=== PATIENT | female | born 1950 | race Caucasian/White ===

== ENCOUNTER 2019-05-22 14:44 | Observation (INO) | payer MEDICARE ==
[2019-05-22] MEDS ORDERED: Nitroglycerin TAB 0.3 MG* 0.3 MG TAB SL PRN (15:25)
[2019-05-22 15:32] LABS: ABS Eosinophils 0.1 10^3/ul (0-0.6); ABS Lymphocytes 3.1 10^3/ul (1.0-4.8); ABS Monocytes 0.9 10^3/ul (0-0.8); ABS Neutrophils 6.2 10^3/ul (1.5-7.7); Eosinophil % 1.1 %; Hematocrit 45 % (35-47); Hemoglobin 15.1 g/dL (12.0-16.0); Lymphocyte % 29.9 %; Mean Corpuscular HGB Conc 34 g/dL (31-36); Mean Corpuscular Hemoglobin 32 pg (27-31); Mean Corpuscular Volume 95 fL (80-97); Mean Platelet Volume 9.2 fL (7.4-10.4); Nucleated Red Blood Cells % 0.2; Platelet Count 204 10^3/uL (150-450); Red Blood Count 4.69 10^6 /uL (3.70-4.87); Red Cell Distribution Width 13 % (10-15); White Blood Count 10.2 10^3/uL (3.5-10.8)
[2019-05-22 15:39] LABS: INR 0.98 (0.82-1.09)
[2019-05-22 16:09] LABS: Albumin 4.5 g/dL (3.2-5.2); Albumin/Globulin Ratio 1.3 (1-3); BUN/Creatinine Ratio 20.5 (8-20); Calcium 9.9 mg/dL (8.6-10.3); EGFR African American 77.6 (>60); EGFR Non-African American 64.1 (>60); Globulin 3.4 g/dL (2-4); Total Bilirubin 0.5 mg/dL (0.2-1.0); Total Protein 7.9 g/dL (6.4-8.9)
--- NOTE | 2019-05-22 16:12 | ED ---
HPI Chest Pain - HPI Summary HPI Summary: The patient is a 69 y/o F presenting to [facility] with a chief complaint of intermittent episodes of chest pain over the last few weeks with a worsening episode occurring today. She reports constant pain over the last few days with an episode of sharper pain starting last night and extending into today. However , today the pain, described as a mid-sternal pressure, began to radiate into the left lateral chest, which she hasn't experienced before. She was at rest during onset today, and she had SOB as well. Currently, the pain is rated 4/10 in severity, She denies any fevers, chills, cough, nausea, vomiting, or diaphoresis during the episodes. She also notes that she hasn't recently fallen or traveled long distances, and she has never had a blood clot. Last stress test in 2001 with normal results. PMHx: angina, HTN, HLD, DM, hypothyroidism. FHx: IA in father age 63. Nonsmoker, occasional EtOH, no substance use. Medications reviewed. Allergies noted. - History of Current Complaint Chief Complaint: EDChestPainROMI Time Seen by Provider: 05/22/19 15:09 Hx Obtained From: Patient Onset/Duration: Started Hours Ago - last night worse than usual with worsening occurring today, Still Present Timing: Constant Initial Severity: Mild Current Severity: Moderate Pain Intensity: 4 Pain Scale Used: 0-10 Numeric Chest Pain Location: Mid Sternal Chest Pain Radiates: Yes Chest Pain Radiates To:: Other - left lateral chest Character: Dull/Aching, Pressure/Squeezing, Sharp/Stabbing Aggravating Factor(s): Rest Alleviating Factor(s): Nothing Associated Signs and Symptoms: Positive: Chest Pain, Shortness of Breath, Other : - Negative: recent fall.. Negative: Fever, Chills, Diaphoresis, Nausea, Cough , Vomiting - Allergy/Home Medications Allergies/Adverse Reactions: Allergies Allergy/AdvReac Type Severity Reaction Status Date / Time No Known Allergies Allergy Verified 05/22/19 14:52 Home Medications: Home Medications Atorvastatin* [Lipitor 10 MG*] 10 mg PO DAILY 05/22/19 [History Confirmed ] Levothyroxine TAB* [Synthroid 100 MCG TAB*] 100 mcg PO DAILY 05/22/19 [History Confirmed 05/22/19] Sitagliptin Phos/Metformin HCl [Janumet 50-1,000 mg Tablet] 1 each PO DAILY 01/04 [History Confirmed 05/22/19] amLODIPine TAB* [Norvasc 5 mg TAB*] 5 mg PO DAILY 05/22/19 [History Confirmed ] PMH/Surg Hx/FS Hx/Imm Hx Endocrine/Hematology History: Reports: Hx Diabetes, Hx Thyroid Disease Cardiovascular History: Reports: Hx Angina, Hx Hypercholesterolemia, Hx Hypertension - Surgical History Surgical History: None Surgery Procedure, Year, and Place: none Infectious Disease History: No Infectious Disease History: Denies: Traveled Outside the [place] in Last 30 Days - Family History Known Family History: Positive: Cardiac Disease - IA father age 63 - Social History Occupation: Employed Full-time Alcohol Use: Occasionally Alcohol Amount: "once in a while" Hx Substance Use: No Substance Use Type: Reports: None Hx Tobacco Use: No Smoking Status (MU): Never Smoked Tobacco Review of Systems Negative: Fever, Chills, Skin Diaphoresis Positive: Chest Pain - mid-sternal pressure radiating to the left lateral wall Positive: Shortness Of Breath - with chest pressure. Negative: Cough Negative: Vomiting, Nausea Positive: Other - left shoulder pain radiating from chest Neurological: Other - Negative: fall All Other Systems Reviewed And Are Negative: Yes Physical Exam - Summary Physical Exam Summary: Constitutional: Well-developed, Well-nourished, Alert. (-) Distressed Skin: Warm, Dry HENT: Normocephalic; Atraumatic Eyes: Conjunctiva normal Neck: Musculoskeletal ROM normal neck. (-) JVD, (-) Stridor, (-) Tracheal deviation Cardio: Rhythm regular, rate normal, Heart sounds normal; Intact distal pulses; The pedal pulses are 2+ and symmetric. Radial pulses are 2+ and symmetric. (-) Murmur Pulmonary/Chest wall: Effort normal. (-) Respiratory distress, (-) Wheezes, (-) Rales Abd: Soft, (-) tenderness, (-) Distension, (-) Guarding, (-) Rebound Musculoskeletal: Good pulses bilaterally in radius, No calf tenderness, No venous cords, No pain with dorsiflexion of foot, (-) Edema Lymph: (-) Cervical adenopathy Neuro: Alert, Oriented x3 Psych: Mood and affect Normal Triage Information Reviewed: Yes Vital Signs On Initial Exam: Initial Vitals Temp Pulse Resp BP Pulse Ox 98.7 F 81 18 184/89 98 05/22/19 14:50 05/22/19 14:50 05/22/19 14:50 05/22/19 14:50 05/22/19 14:50 Vital Signs Reviewed: Yes Diagnostics - Vital Signs Vital Signs Temp Pulse Resp BP Pulse Ox 05/22/19 15:12 82 19 178/95 98 05/22/19 15:07 75 13 99 05/22/19 14:50 98.7 F 81 18 184/89 98 - Laboratory Lab Results: Lab Results 05/22/19 05/22/19 05/22/19 Range/Units 15:12 15:12 15:12 WBC 10.2 (3.5-10.8) 10^3/uL RBC 4.69 (3.70-4.87) 10^6 /uL Hgb 15.1 (12.0-16.0) g/dL Hct 45 (35-47) % MCV 95 (80-97) fL MCH 32 H (27-31) pg MCHC 34 (31-36) g/dL RDW 13 (10-15) % Plt Count 204 (150-450) 10^3/uL MPV 9.2 (7.4-10.4) fL Neut % (Auto) 60.3 % Lymph % (Auto) 29.9 % [place] % (Auto) 8.4 % Eos % (Auto) 1.1 % Baso % (Auto) 0.3 % Absolute Neuts (auto) 6.2 (1.5-7.7) 10^3/ul Absolute Lymphs (auto) 3.1 (1.0-4.8) 10^3/ul Absolute Monos (auto) 0.9 H (0-0.8) 10^3/ul Absolute Eos (auto) 0.1 (0-0.6) 10^3/ul Absolute Basos (auto) 0.0 (0-0.2) 10^3/ul Absolute Nucleated RBC 0.0 10^3/ul Nucleated RBC % 0.2 INR (Anticoag Therapy) 0.98 (0.82-1.09) Sodium Pending Potassium Pending Chloride Pending Carbon Dioxide Pending Anion Gap Pending BUN Pending Creatinine Pending Est GFR ( Amer) Pending Est GFR (Non-Af Amer) Pending BUN/Creatinine Ratio Pending Glucose Pending Calcium Pending Total Bilirubin Pending AST Pending ALT Pending Alkaline Phosphatase Pending Troponin I 0.00 (<0.04) ng/mL Total Protein Pending Albumin Pending Globulin Pending Albumin/Globulin Ratio Pending Result Diagrams: 05/22/19 15:12 05/22/19 15:12 Lab Statement: Any lab studies that have been ordered have been reviewed, and results considered in the medical decision making process. - Radiology CXR Radiology Interpretation Completed By: Radiologist Summary of Radiographic Findings: Impression: No active cardiopulmonary disease. ED physician has reviewed this report. - EKG 1445 Cardiac Rate: NL - 76 bpm EKG Rhythm: Sinus Rhythm Summary of EKG Findings: NSR at [address] depressions in V4-V6. Re-Evaluation - Re-Evaluation First Eval Re-Evaluation Time: 18:00 Comment: Pt aware of admission plans. Chest Pain Course/Dx - Course Assessment/Plan: Patient is here with chest pain. Patient's never been worked up from a cardiac standpoint. Patient does have T-wave inversions in her lateral leads. Patient had chest x-ray which is unremarkable. Patient does not have risk factors for PE. Patient had negative troponin. Given patient's moderate heart score, patient was admitted to the hospital for stress test. - Diagnoses Provider Diagnoses: Chest pain - Provider Notifications Discussed Care Of Patient With: Agus Preciado - hospitalist Time Discussed With Above Provider: 17:58 Instructed by Provider To: Other - Dr. Preciado accepts the patient for admission for inpatient stress test. Discharge ED - Sign-Out/Discharge Documenting (check all that apply): Patient Departure - Patient is accepted for admission by Dr. Preciado. Patient Received Moderate/Deep Sedation with Procedure: No - Discharge Plan Condition: Stable Disposition: ADMITTED TO [facility] - Billing Disposition and Condition Condition: STABLE Disposition: Admitted to [facility] - Attestation Statements Document Initiated by Scribe: Yes Documenting Scribe: Maria Eugenia Ortiz Provider For Whom Scribe is Documenting (Include Credential): Dr. Darren Forbes MD Scribe Attestation: Maria Eugenia Villatoro scribed for Dr. Darren Forbes MD on 05/24/19 at 1055. Scribe Documentation Reviewed: Yes Provider Attestation: The documentation as recorded by the scribe, Maria Eugenia Ortiz accurately reflects the service I personally performed and the decisions made by me, Dr. Darren Forbes MD Status of Scribe Document: Viewed
[2019-05-22] MEDS: Nitroglycerin TAB 0.4 MG* 0.4 MG TAB SL PRN ×3 (16:24→17:30)
[2019-05-22] MEDS ORDERED: Ondansetron INJ* 2 MG/ML VIAL IV PRN (19:03)
[2019-05-22] MEDS ORDERED: Acetaminophen TAB* 325 MG PO PRN (19:03)
[2019-05-22] MEDS ORDERED: Aspirin TAB* 325 MG PO ONE (19:07)
--- NOTE | 2019-05-22 19:48 | HP ---
ADMISSION HISTORY AND PHYSICAL: DATE OF ADMISSION: 05/22/19 PRIMARY CARE PROVIDER: In [place], Dr. Zia Clark. HEALTHCARE PROXY: Her . CODE STATUS: Full. SOURCE OF INFORMATION: History obtained from interview with the patient. RELIABILITY: Good. CHIEF COMPLAINT: Chest discomfort. HISTORY OF PRESENT ILLNESS: This is a 69-year-old female with past medical history of hypertension, hyperlipidemia, type 2 diabetes as well as family history of father whose first WA was at age 50 who at 63 from an WA, who has had several weeks of intermittent chest discomfort that became almost constant over the last few days with a sensation that she "I feel my heart" described as a pressure. The night prior to presentation, she noted that the chest pain began to radiate to her left shoulder and neck, although denies any dizziness, nausea, diaphoresis, orthopnea, PND, syncope, or near syncope. She notes she is quite active. She took a recent vacation to [place] from 05/05/19 to 05/15/19 on a 7-hour flight, which she says she did get up and ambulate. While there, she went for a 24-mile bike ride and did have occasional chest tightness. During my interview, she had received nitroglycerin with some moderate relief. She has had no fevers, chills or night sweats, coughs or shortness of breath. No GI or symptoms. PAST MEDICAL HISTORY: Includes hypertension, hyperlipidemia, type 2 diabetes, hypothyroidism, history of appendectomy. HOME MEDICATIONS: Include: 1. Janumet twice daily. 2. Atorvastatin 40 mg daily. 3. Norvasc 5 mg daily. 4. Levothyroxine 100 mcg daily. ALLERGIES: No known drug allergies. FAMILY HISTORY: Significant for father with multiple MIs, first at age 50, at 63. SOCIAL HISTORY: No tobacco. Drinks about a bottle of wine per week. 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 REVIEW OF SYSTEMS: As per HPI, otherwise all other systems negative. PHYSICAL EXAMINATION GENERAL: Sitting up in bed, interactive, pleasant, in no apparent distress. VITAL SIGNS: In the emergency room, blood pressure 126/67, heart rate 71, respiratory rate is 19, she is 96% on room air, T-max 98.7. HEENT: Oropharynx is clear. She has moist mucous membranes. Sclerae are anicteric. NECK: She has non-elevated JVD. She has no cervical or supraclavicular lymphadenopathy. LUNGS: Clear throughout. HEART: She has a regular rate and rhythm. No murmurs, rubs, or gallops. ABDOMEN: Soft, nontender, nondistended. EXTREMITIES: Warm and well perfused without clubbing, cyanosis, or edema. She has less than 2 second cap refill. 2+ peripheral pulses. NEUROLOGIC: She is alert and oriented x3. Her cranial nerves II through XII are intact. DIAGNOSTIC STUDIES/LAB DATA: Labs were reviewed, notable for glucose 195, ALT is elevated at 64. First troponin is 0.00. Data reviewed. Chest x-ray, no active cardiopulmonary disease. EKG: Normal sinus rhythm, ventricular rate of 76, normal axis, normal intervals. She has approximately [address] depressions in V3, V4, V5. ASSESSMENT AND PLAN: This is a 69-year-old female with past medical history of hypertension, hyperlipidemia, diabetes as well as a family history notable for early myocardial infarction in her father, presented with chest discomfort that has been crescendo in pattern, chest pain that got acutely worse in the last 24 hours, associated with anterolateral minimal ST depressions. 1. Chest discomfort. Concern for acute coronary syndrome. First troponin is negative. We will trend next now and the third in 3 hours. Give aspirin now. Continue statin. Plan on exercise stress nuclear imaging tomorrow. Notably, the patient did have recent travel. She noted that was only 7 hours; however, pulmonary embolism does remain on the differential, though she is not tachycardic, although her Wells' score is quite low, and she has a reason that is quite more probable at times. If she continues to have chest pain tomorrow with a negative stress test, I would consider a CTA of her thorax. 2. Diabetes. Continue home medication. 3. Hypertension. Continue home medication. 4. Hyperlipidemia. Continue home medication. 5. DVT prophylaxis, enoxaparin. [id number]/[facility] #: [id number] [facility]ITALCandie
[2019-05-22] MEDS ORDERED: Enoxaparin(*) 40 MG/0.4 ML SYR SUBCUT SCH (21:00)
[2019-05-23] MEDS ORDERED: Levothyroxine TAB* 100 MCG TAB PO SCH (06:00)
[2019-05-23 06:58] LABS: HDL Cholesterol 36.7 mg/dL
[2019-05-23] MEDS ORDERED: amLODIPine TAB* 5 MG PO SCH (09:00)
[2019-05-23] MEDS ORDERED: metFORMIN* 1,000 MG TAB PO SCH (09:00)
[2019-05-23] MEDS ORDERED: Atorvastatin* 10 MG TAB PO SCH (09:00)
[2019-05-23] MEDS ORDERED: CMCS:SitaGLIPtin (NF) 25 MG TAB PO SCH (09:00)
[2019-05-23 13:05] VITALS: BP 141/67
--- NOTE | 2019-05-23 20:31 | DS ---
DISCHARGE SUMMARY: DATE OF ADMISSION: 05/22/19 DATE OF DISCHARGE: 05/23/19 DISPOSITION ON DISCHARGE: Home. CONDITION ON DISCHARGE: Good. PRIMARY DIAGNOSES: Chest pain. SECONDARY DIAGNOSES: Include: 1. Diabetes. 2. Hyperlipidemia. 3. Hypertension. 4. Hypothyroidism. MEDICATIONS AT DISCHARGE: Unchanged from admission include: 1. Janumet twice daily. 2. Atorvastatin 40 mg daily. 3. Norvasc 5 mg daily. 4. Levothyroxine 100 mcg daily. PERTINENT LABORATORY DATA: Troponin I is 0.0 x3. PROCEDURES PERFORMED DURING HOSPITAL STAY: Exercise stress with nuclear imaging , low risk by EKG portion as well as nuclear imaging. HISTORY OF PRESENT ILLNESS AND HOSPITAL COURSE: This is a 69-year-old female with past medical history as outlined in the history of present illness on the day of admission, presented to the hospital with several days of chest pain, worse since the night prior to presentation, radiating to her left shoulder. There was a concern for underlying ACS. She was admitted to the hospital, received aspirin, had serial negative troponins, and normal EKGs. She underwent an exercise stress test on the day of discharge, which was interpreted as low risk and normal assessment without any areas of reversible ischemia. The patient was no longer having chest discomfort at the time of discharge. I did get some indication that she may be trying to conceal any discomfort in order to be discharged, noting that she did not have pain and "it is fine." I encouraged her heavily to be honest with any of her discomfort with me, in that should she have any recurrence of pain if the same or worse, shortness of breath, nausea, vomiting, lightheadedness, loss of consciousness, near loss of consciousness to return to the hospital immediately. The patient has recently returned from travel from [place], it was about a 7-hour trip, I believe she returned on 05/15/19. I did have low suspicion for a pulmonary embolism but should her pain return or be worsened, I would have a low threshold to perform a CTA. The patient understood this and indicated she was chest pain free. At the time of her discharge, she was not hypoxic, she had no tachypnea, no tachycardia, and therefore more likely diagnosis may have represented a GERD or other GI related phenomenon. There were no complications during the course of her hospital stay. At followup please; no additional labs or vitals to follow. Reasons to return to the hospital were discussed at length with the patient as indicated above including, recurrent or worsening chest pain, shortness of breath, nausea, vomiting, lightheadedness, loss of consciousness, or near loss of consciousness. The patient acknowledged understanding. TIME SPENT: Greater than 60 minutes was spent on the discharge of this patient , greater than half was spent [id number] with the patient. [id number]/[facility] #: [id number] MTDCandie
== END 2019-05-23 13:30 | disposition home or self-care (01) ==
LOC: ED 14:44 → MEDTELE 19:03
PROVIDERS: ADMIT Internal Medicine; ATTEND Internal Medicine
DX: R07.9 Chest pain, unspecified (principal); E11.9 Type 2 diabetes mellitus without complications; E78.5 Hyperlipidemia, unspecified; I10 Essential (primary) hypertension; E03.9 Hypothyroidism, unspecified; Z90.89 Acquired absence of other organs; Z79.899 Other long term (current) drug therapy; Z82.49 Family history of ischemic heart disease and other diseases of the circulatory system; R06.02 Shortness of breath; E78.00 Pure hypercholesterolemia, unspecified
CPT/HCPCS: 36415; 71046; 78452; 80053; 80061; 83036; 84484; 85025; 85610; 93005; 93017; 96372; 99285; A9270-GY; A9502; G0378; J1650